=== PATIENT | female | born 1985 | race Asian ===

== ENCOUNTER 2019-01-11 23:29 | Emergency (ER) | payer OTHER ==
[~2019-01-11] VITALS: Ht 167.6 cm; Wt 61.2 kg
--- NOTE | 2019-01-11 23:46 | NUR ---
ED Nurse Note: pt ambulated to c/o left foot pain swhen exercise pilates x 01/09/19 evening. Pt is AO x 4times, VSS, on room air no distress. GUERREROD seen Pt at bedside.
--- NOTE | 2019-01-12 | NUR ---
ED Nurse Note: X ray at bedside.
--- NOTE | 2019-01-12 | Emergency Room Report ---
History of Present Illness General Chief Complaint: Lower Extremity Injury Source: Patient Present Illness HPI 33-year-old female presents with left foot pain, sharp in nature aggravated with movement alleviated with rest, moderate severity, patient states she was doing Pilates 2 days ago, that when the pain started, no nausea no vomiting no chest pain no shortness of breath Allergies: Coded Allergies: No Known Allergies (Unverified , 01/11/19) Patient History Past Medical History: see triage record Last Menstrual Period: 12/23/18 Now: No Reviewed Nursing Documentation: PMH: Agreed; PSxH: Agreed Nursing Documentation-PMH Past Medical History: No Stated History Review of Systems All Other Systems: negative except mentioned in HPI Physical Exam Vital Signs Date Time Temp Pulse Resp B/P (MAP) Pulse Ox O2 Delivery O2 Flow Rate FiO2 01/11/19 23:35 98.4 65 16 100/66 (77) 100 Room Air Sp02 EP Interpretation: reviewed, normal General Appearance: well appearing, no apparent distress, alert Head: normocephalic, atraumatic Eyes: bilateral eye PERRL, bilateral eye EOMI ENT: uvula midline, moist mucus membranes Neck: supple, thyroid normal, supple/symm/no masses Respiratory: lungs clear, no respiratory distress, no retraction, no accessory muscle use Cardiovascular #1: normal peripheral pulses, regular rate, rhythm, no edema, no gallop, no murmur Gastrointestinal: non tender, soft, no guarding, no rebound Musculoskeletal: normal inspection, other - Left foot: 2+ PT DP, tenderness to palpation third metatarsal, 5 out of 5 strength plantar dorsiflexion Neurologic: alert, oriented x3 Psychiatric: mood/affect normal Skin: no rash, warm/dry Medical Decision Making Diagnostic Impression: Primary Impression: Strain of left foot Qualified Codes: S96.912A - Strain of unspecified muscle and tendon at ankle and foot level, left foot, initial encounter ER Course Patient with strain of the left foot, patient is not tender at the navicular, patient with x-ray shows most likely an os. Disposition home with return precautions follow-up with Ortho Preliminary Findings Only See Final Report For Complete Findings FILM LEFT FOOT: Accessory ossicle versus fragment of uncertain chronicity related either to the navicular region Radiologist: Nabor East M.D. Study ready at 00:10 and initial results transmitted at 00:12 Last Vital Signs Date Time Temp Pulse Resp B/P (MAP) Pulse Ox O2 Delivery O2 Flow Rate FiO2 01/11/19 23:35 98.4 65 16 100/66 (77) 100 Room Air Disposition: HOME, SELF-CARE Condition: Stable Scripts Naproxen* (NAPROSYN*) 250 Mg Tablet 250 MG ORAL BID PRN for For Pain, #20 TAB 0 Refills Prov: Marco Vasquez MD 01/12/19 Referrals: [facility]. [facility] Departure Forms: Return to Work Return to Work Date: Jan 19, 2019 Work Restrictions: No Heavy Lifting, No Prolonged Standing Patient Instructions: Foot Sprain Additional Instructions: The patient was provided with discharge instructions, notified to follow-up with a primary care doctor and or specialist in the next 24-48 hours, and to return to the ED if they have worsening of their symptoms. Please note that this report is being documented using [employer] technology. This can lead to erroneous entry secondary to incorrect interpretation by the dictating instrument. Marco Vasquez MD Jan 12, 2019 00:00
--- NOTE | 2019-01-12 00:13 | Diagnostic Imaging Report ---
Indication: Left foot pain Technique: 3 views left foot Comparison: none Findings: Small ossified fibrous cortical defect is seen in the first distal phalanx. No acute fractures. No dislocations. The joint spaces are preserved. Large accessory ossicle is seen adjacent to the navicular Impression: No acute bony trauma This agrees with the preliminary interpretation provided overnight by [facility] teleradiology service.
--- NOTE | 2019-01-12 00:16 | NUR ---
ED Nurse Note: Urine sample sent to lab.
[2019-01-12] MEDS ORDERED: NAPROXEN250 MG ORAL (00:36)
[2019-01-12 00:41] VITALS: BP 100/66
--- NOTE | 2019-01-12 00:42 | NUR ---
ER DISCHARGE NOTE: Patient is cleared to be discharged per ERMD, pt is aox4, on room air, with stable vital signs. pt was given dc and prescription instructions, pt was able to verbalize understanding, pt id band removed without complications. pt is able to ambulate with steady gait. pt took all belongings.
== END 2019-01-12 00:42 | disposition home or self-care (01) ==
LOC: EMR 23:42
DX: S96.912A Strain of unspecified muscle and tendon at ankle and foot level, left foot, initial encounter (principal); X58.XXXA Exposure to other specified factors, initial encounter; Y93.B9 Activity, other involving muscle strengthening exercises; Y92.9 Unspecified place or not applicable
CPT/HCPCS: 81025; 99283